=== PATIENT | female | born 1960 | race Caucasian/White ===

== ENCOUNTER → 2020-02-19 | Outpatient (CLI) | payer BC ==
[~2020-02-19] MED LIST: BENADRYL25 MG PO; ESTRACE2 MG PO; FISH OIL 1,001000 M2 PO; FLEXERIL PO; HYDROCODONE-AP1 EA11 PO; HYDROCODONE-AP1 EAC6 PO; IBUPROFEN 800800 M1 PO; LEVOTHYROXIN0.088 MG PO; LEXAPRO20 MG PO; LIDODERM1 EACH TOP; MUCINEX TA600 MG/TA2 PO; NASACORT AQ16.5 GM; NORFLEX100 MG PO; UNICOMPLEX M TA1 TA1 PO; VENTOLIN HFA 1818 GM INH; VITAMIN D1000 UNI1 PO; XANAX 0.5 MG0.5 MG PO
== END ==
LOC: M.PC 11:49
PROVIDERS: ATTEND Anesthesiology Pain Medicine
DX: M41.86 Other forms of scoliosis, lumbar region (principal); Z90.710 Acquired absence of both cervix and uterus; Z88.0 Allergy status to penicillin; Z88.8 Allergy status to other drugs, medicaments and biological substances

== ENCOUNTER → 2020-02-24 | Outpatient (CLI) | payer BC | END | disposition home or self-care (01) | LOC: M.PC 13:20 | PROVIDERS: ATTEND Anesthesiology Pain Medicine | DX: M51.16 Intervertebral disc disorders with radiculopathy, lumbar region (principal); G89.29 Other chronic pain; F32.9 Major depressive disorder, single episode, unspecified; F41.9 Anxiety disorder, unspecified; Z98.890 Other specified postprocedural states; Z79.899 Other long term (current) drug therapy; Z88.0 Allergy status to penicillin; Z88.8 Allergy status to other drugs, medicaments and biological substances ==